=== PATIENT | female | born 1970 | race African-American/Black ===

== ENCOUNTER 2022-06-01 07:43 | Emergency (ER) | payer SELFPAY ==
[~2022-06-01] VITALS: Ht 172.7 cm; Wt 111.0 kg
[2022-06-01] MEDS ORDERED: BENZ100C86 MT (08:40)
[2022-06-01] MEDS ORDERED: SODI88SP18 BOTHNSTRLS (08:40)
[2022-06-01] MEDS ORDERED: BENZ1LOZ73 MT (08:40)
[2022-06-01 08:56] VITALS: BP 149/71
== END 2022-06-01 09:00 | disposition home or self-care (01) ==
LOC: ER 07:43
DX: J06.9 Acute upper respiratory infection, unspecified (principal); R04.0 Epistaxis; Z79.899 Other long term (current) drug therapy
CPT/HCPCS: 81025; 99283